=== PATIENT | female | born 1995 | race Caucasian/White ===

== ENCOUNTER 2018-08-08 14:29 | Emergency (ER) | payer SELFPAY ==
[~2018-08-08] VITALS: Ht 175.3 cm; Wt 72.6 kg
--- NOTE | 2018-08-08 15:03 | EKG ---
[address] [address] Test Date: 2018-08-08 Test Time: 14:42:21 Pat Name: PRIMO MIR Department: Room: Gender: F [employer]: : 1995 Requested By: WILLEM PRECIADO Order Number: [id number] Reading MD: Fran Andrade Measurements Intervals [place] Rate: 80 P: 42 RI: 140 QRS: 43 QRSD: 102 T: 30 QT: 380 QTc: 442 Interpretive Statements SINUS RHYTHM INCOMPLETE RIGHT BUNDLE BRANCH BLOCK Electronically Signed On 08-11-2018 10:25:55 CDT by Fran Andrade
[2018-08-08] MEDS ORDERED: NAPROXEN 500 MG TABLET PO ONE (15:15)
[2018-08-08 15:30] VITALS: BP 132/83
[2018-08-08] MEDS ORDERED: NAPR-683 PO (15:30)
--- NOTE | 2018-08-08 15:30 | PHYS DOC ---
Past History Past Medical History: Anxiety, Depression Past Surgical History: Other Smoking: Non-smoker Alcohol Use: Sober Drug Use: None Adult General Chief Complaint Chief Complaint: CHEST PAIN [place] [employer] HPI Patient is a 22 year old female who presents with complaining of chest pain. Patient complaining of sudden onset of left-sided sharp pain about 2 hours ago as a constant pain that getting worse with movement and taking deep breaths. Patient complaining of mild shortness of breath with palpitation and dizziness and lightheadedness. Patient states she is working long hours in between to jobs. Patient states she had episodes of the same problem but today her pain was worse than her usual and rated her pain 9/10. She denies , history of coronary artery disease, hypertension, diabetes, high cholesterol. Review of Systems Review of Systems Constitutional: Denies fever or chills [] Eyes: Denies change in visual acuity, redness, or eye pain [] HENT: Denies nasal congestion or sore throat [] Respiratory: Denies cough or shortness of breath [] Cardiovascular: No additional information not addressed in HPI [] GI: Denies abdominal pain, nausea, vomiting, bloody stools or diarrhea [] : Denies dysuria or hematuria [] Musculoskeletal: Denies back pain or joint pain [] Integument: Denies rash or skin lesions [] Neurologic: Denies headache, focal weakness or sensory changes [] Endocrine: Denies polyuria or polydipsia [] All other systems were reviewed and found to be within normal limits, except as documented in this note. Allergies Allergies Allergies Coded Allergies Type Severity Reaction Last Updated Verified Fish Containing Products Allergy Mild 11/10/14 Yes Physical Exam Physical Exam Constitutional: Well developed, well nourished, mild distress, non-toxic appearance. [] HENT: Normocephalic, atraumatic. Eyes: PERRLA, EOMI, conjunctiva normal, no discharge. [] Neck: Normal range of motion, no tenderness, supple, no stridor. [] Cardiovascular:Heart rate regular rhythm, no murmur [] Lungs & Thorax: Bilateral breath sounds clear to auscultation [] Abdomen: Bowel sounds normal, soft, no tenderness, no masses, no pulsatile masses. [] Skin: Warm, dry, no erythema, no rash. [] Back: No tenderness, no CVA tenderness. [] Extremities: No tenderness, no cyanosis, no clubbing, ROM intact, no edema. [] Neurologic: Alert and oriented X 3, normal motor function, normal sensory function, no focal deficits noted. [] Psychologic: Affect anxious, judgement normal, mood normal. [] Current Patient Data Vital Signs Vital Signs Date Time Temp Pulse Resp B/P (MAP) Pulse Ox O2 Delivery O2 Flow Rate FiO2 08/08/18 14:35 97.8 74 20 98 Room Air EKG EKG EKG interpreted by me. EKG at 1442 showed normal sinus rhythm at rate of 80, incomplete right bundle-branch block, no acute ST and T-wave abnormalities. Radiology/Procedures Radiology/Procedures [] Course & Med Decision Making Course & Med Decision Making Evaluation of patient in ER showed 22-year-old female patient with complaining of chest pain after stressful condition at her work that improved with Naprosyn ER. Dragon Disclaimer Dragon Disclaimer This electronic medical record was generated, in whole or in part, using a voice recognition dictation system. Departure Departure: Impression: Primary Impression: Chest pain due to psychological stress Disposition: 01 HOME, SELF-CARE (at) Condition: IMPROVED Referrals: RACHANA CAN (PCP) Patient Instructions: Anxiety and Panic Attacks Additional Instructions: Drink plenty of liquids Follow-up with your primary care physician in 3-5 days Return to ER if not getting better Scripts Naproxen (NAPROSYN) 500 Mg Tablet 1 TAB PO BID, #20 TAB Prov: WILLEM PRECIADO MD 08/08/18 WILLEM PRECIADO MD Aug 08, 2018 15:30
== END 2018-08-08 15:35 | disposition home or self-care (01) ==
LOC: ER 14:29
DX: R07.89 Other chest pain (principal); Z73.3 Stress, not elsewhere classified; F41.9 Anxiety disorder, unspecified; F32.9 Major depressive disorder, single episode, unspecified; Z91.013 Allergy to seafood
CPT/HCPCS: 93005; 99283